=== PATIENT | female | born 1965 | race African-American/Black ===

== ENCOUNTER 2017-02-05 09:37 | Emergency (ER) | payer MEDICAID, OTHER ==
[~2017-02-05] VITALS: Ht 170.2 cm; Wt 73.0 kg
[~2017-02-05 09:37] MED LIST: ALBUTEROL; METFORMIN; RANITIDINE; TRAM50TA3; VALIUM
[2017-02-05 09:44] VITALS: BP 111/70
== END 2017-02-05 16:08 | disposition left against medical advice (07) ==
LOC: ER 09:38
DX: M54.9 Dorsalgia, unspecified (principal); Z53.21 Procedure and treatment not carried out due to patient leaving prior to being seen by health care provider

== ENCOUNTER 2017-07-18 04:11 | Emergency (ER) | payer MEDICAID, MEDICARE, OTHER ==
[~2017-07-18] VITALS: Ht 175.3 cm; Wt 69.0 kg
[2017-07-18 04:52] VITALS: BP 110/65
[2017-07-18] MEDS ORDERED: LIDOCAINE 5% PATCH TOP SCH (07:30)
== END 2017-07-18 08:33 | disposition home or self-care (01) ==
LOC: ER 04:11
DX: G89.29 Other chronic pain (principal); M54.9 Dorsalgia, unspecified; M48.00 Spinal stenosis, site unspecified; Z79.84 Long term (current) use of oral hypoglycemic drugs; Z88.5 Allergy status to narcotic agent; Z88.6 Allergy status to analgesic agent; Z90.49 Acquired absence of other specified parts of digestive tract; Z98.890 Other specified postprocedural states
CPT/HCPCS: 99282

== ENCOUNTER 2024-07-21 00:23 | Emergency (ER) | payer MEDICAID, MEDICARE ==
[~2024-07-21] VITALS: Ht 175.3 cm; Wt 83.1 kg
[2024-07-21 00:34] VITALS: TEMP 36.9; O2SAT 99
[2024-07-21] MEDS ORDERED: LIDO700A15 TP (03:24)
[2024-07-21] MEDS ORDERED: CEPH500T MT (03:35)
[2024-07-21] MEDS ORDERED: SULF1TAB48 MT (03:35)
[2024-07-21] MEDS: MORPHINE SULFATE 4 MG/ML INJ (FOR IV/IM USE) IM ONE (03:36)
[2024-07-21] MEDS: DIPHENHYDRAMINE 25MG CAPSULE PO ONE (03:46)
[2024-07-21] MEDS: METOCLOPRAMIDE HCL 10MG TABLET PO ONE (03:46)
[2024-07-21 04:30] VITALS: BP 130/85; PULSE 98; RESP 20; O2SAT 99
== END 2024-07-21 04:31 | disposition home or self-care (01) ==
LOC: ER 00:23
DX: L02.31 Cutaneous abscess of buttock (principal); M54.50 Low back pain, unspecified; E78.00 Pure hypercholesterolemia, unspecified; J45.909 Unspecified asthma, uncomplicated; Z88.5 Allergy status to narcotic agent; Z88.6 Allergy status to analgesic agent; Z90.49 Acquired absence of other specified parts of digestive tract
CPT/HCPCS: 99283; 96372; J8597; J2270